=== PATIENT | female | born 1930 | race Caucasian/White ===

== ENCOUNTER 2016-05-16 13:54 | Emergency (ER) | payer MEDICARE ==
[~2016-05-16] VITALS: Ht 139.7 cm; Wt 64.3 kg
[~2016-05-16 13:54] MED LIST: ALAW0.02 EACH EYE; APIX2.5T PO; ATOR20TA PO; CEFU1TAB43 PO; CHOL1CAP6 PO; CLON.1 PO; DOCU1CAP39 PO; FENT100D TD; FERR324T4 PO; FEXO180 PO; FURO20TA PO; KLOR20TA6 PO; LEVO100T4 PO; LOSA100T PO; MAGN400 PO; MAXA10TA2 PO; METHO500 PO; METO25 PO; MOME17I; MOME17I EACH NARE; OCUVTAB PO; OXYC1SOL5 PO; POLY119S PO; PROT40TA PO; TRAZ50TA4 PO
[2016-05-16 14:14] VITALS: BP 103/46; PULSE 76; RESP 18; TEMP 99.3; O2SAT 98
[2016-05-16] MEDS ORDERED: TRAZ50TA12 PO (14:45)
[2016-05-16] MEDS ORDERED: POTA10TA2 PO (14:45)
[2016-05-16] MEDS ORDERED: AMLO10TA2 PO (14:46)
[2016-05-16] MEDS ORDERED: MIRA25TA PO (14:46)
[2016-05-16] MEDS ORDERED: HYDR-3533 PO (14:46)
[2016-05-16] MEDS ORDERED: FURO1TAB62 PO (14:46)
[2016-05-16] MEDS ORDERED: FENT50DI T-DERMAL (14:46)
[2016-05-16] MEDS ORDERED: LIPI20TA PO (14:46)
[2016-05-16] MEDS ORDERED: APIX2.5T PO (14:46)
[2016-05-16] MEDS ORDERED: FLUT50SP EACH NARE (14:46)
[2016-05-16] MEDS ORDERED: ALAW0.02 EACH EYE (14:46)
[2016-05-16] MEDS ORDERED: LEVO125T4 PO (14:46)
[2016-05-16] MEDS ORDERED: LOSA100T PO (14:46)
[2016-05-16] MEDS ORDERED: FEXO180T PO (14:46)
[2016-05-16] MEDS ORDERED: IMIT100T PO (14:46)
[2016-05-16] MEDS ORDERED: GABA300C5 PO (14:46)
--- NOTE | 2016-05-16 14:53 | PD ---
HPI Chief Complaint: Edema Time Seen by Provider: 14:19 Travel History International Travel<30 days: No Contact w/Intl Traveler<30days: No Traveled to known affect area: No History of Present Illness HPI The patient is a 86-year-old female who presents to the emergency department for lower extremity edema. According to the the patient has a history of lower extremity edema and the patient notes an approximately 2 month history of intermittent edema of the lower extremities. The patient states the edema is worse throughout the day and at night, slightly improved in the morning. She states both lower extremities are occasionally edematous, occasionally warm, occasionally red. The patient does have a history of cellulitis to lower extremities as well as pain to stay from left lower extremity from previous CABG. The patient called her primary physician, Dr. Terry, who referred the patient to the emergency department. The also states the patient occasionally has intermittent episodes of confusion, their physician recommended a CT the brain as well as the patient is currently anticoagulated on Eliquis. The patient denies any current focal deficits, weakness, numbness, or tingling. She denies any difficulty with her speech or headache. The patient denies any current chest pain or shortness of breath. PFSH Past Medical History Hx Anticoagulant Therapy: Yes Anemia: Yes Arthritis: Yes Atrial Fibrillation: Yes Autoimmune Disease: Yes (RA) Anxiety: No Depression: Yes (HX OF - DENIES CURRENTLY ) Cancer: No Cardiac Catheterization: Yes Cardiovascular Problems: Yes High Cholesterol: Yes Coronary Artery Disease: Yes Diabetes: No Diminished Hearing: No Endocrine: Yes Gastrointestinal Disorders: Yes GERD: Yes Genitourinary: No Hypertension: Yes Immune Disorder: Yes (RA) Implanted Vascular Access Dvce: Yes Musculoskeletal: Yes Neurologic: Yes Psychiatric: Yes Reproductive: No Respiratory: No Immunizations Current: Yes Myocardial Infarction: Yes Thyroid Disease: Yes (HYPO) Triglycerides - High: Yes Tetanus Vaccination: > 5 Years ?: Not Menopausal: Yes Past Surgical History Body Medical Devices: PHONG EYE LENS, UNSURE IF STENTS FROM CATH Cardiac Surgery: Yes (X2 VESSEL CABG) Coronary Artery Bypass Graft: Yes (double bypass 1994) Eye Surgery: Yes (BILATERAL CATARACT) Gynecologic Surgery: Yes (ABDOMINOPLASTY ) Hysterectomy: Yes Joint Replacement: Yes (PHONG. HIP 1996, 2010) Neurologic Surgery: Yes (LUMBAR LAMINECTOMY ; ANTERIOR CERVCIAL FUSION ) Other Surgery: Yes (TUMMY TUCK) Social History Alcohol Use: Yes (OCCAS WINE) Tobacco Use: No Substance Use: No Allergies-Medications (Allergen,Severity, Reaction): Coded Allergies: Amoxicillin (Verified Allergy, Severe, Anaphylaxis, 05/16/16) Sulfa (Verified Allergy, Severe, SEVERE RASH, 05/16/16) SEVERE RASH Amalgams ([place]) (Verified Allergy, Unknown, pain, 05/16/16) Celebrex (Unverified Allergy, Unknown, can not remember, 05/16/16) Hydrocodone (Verified Allergy, Unknown, Pt states that she is no longer allergic to hydrocodone,, 05/16/16) Pt states that she is no longer allergic to hydrocodone, usually takes this medication for pain Penicillin (Verified Allergy, Unknown, Anaphylaxis, 05/16/16) ALL CILLINS Adhesives (Verified Adverse Reaction, Mild, ITCHING- ONLY IF STAYS TOO LONG, 05/16/16) Reported Meds & Prescriptions Reported Meds & Active Scripts Active Macrobid (Nitrofurantoin Monoh/Nitrofur Macro) 100 Mg Cap 100 Mg PO BID Reported Lortab (Hydrocodone-Acetaminophen) 5-325 Mg Tab 1 Tab PO Q6H PRN Fexofenadine (Fexofenadine HCl) 180 Mg Tab 180 Mg PO DAILY PRN Imitrex (Sumatriptan Succinate) 100 Mg Tab 100 Mg PO ONCE PRN If a satisfactory response has not been obtained at 2 hours, a second dose may be administered Gabapentin 300 Mg Cap 300 Mg PO BID Fentanyl Patch 72 HR (Fentanyl) 50 Mcg/Hr Patch 50 Mcg T-DERMAL Q72H Remove old patch when new one placed. Myrbetriq (Mirabegron) 25 Mg Tab 25 Mg PO DAILY [place] Opth Drops (Ketotifen Opth Drops) 0.025% Drops 1 Drop EACH EYE BID Lasix (Furosemide) 20 Mg Tab 20 Mg PO 3 TIMES WEEK Fluticasone Nasal [place] 50 Mcg/Act Naspr 50 Mcg EACH NARE BID 50 mcg/spray Amlodipine (Amlodipine Besylate) 10 Mg Tab 10 Mg PO DAILY Losartan (Losartan Potassium) 100 Mg Tab 100 Mg PO DAILY Lipitor (Atorvastatin Calcium) 20 Mg Tab 20 Mg PO HS Eliquis (Apixaban) 2.5 Mg Tab 2.5 Mg PO BID Levothyroxine (Levothyroxine Sodium) 125 Mcg Tab 125 Mcg PO DAILY Trazodone (Trazodone HCl) 50 Mg Tab 50 Mg PO HS Potassium Chloride ER (Potassium Chloride) 10 Meq Tab 10 Meq PO 3 TIMES WEEK Review of Systems Except as stated in HPI: all other systems reviewed are Neg General / Constitutional: No: Fever HENT: No: Lightheadedness Cardiovascular: No: Chest Pain or Discomfort Respiratory: No: Shortness of Breath Gastrointestinal: No: Nausea, Vomiting, Abdominal Pain Musculoskeletal: Positive: Edema Neurologic: Positive: Change in Mentation, No: Focal Abnormalities ( occasional change in mental status according to the ), Headache, Paresthesia, Sensory Disturbance Physical Exam Narrative GENERAL: Awake, alert, 86-year-old female who appears her stated age and is in no acute respiratory distress. SKIN: Warm and dry. HEAD: Atraumatic. Normocephalic. EYES: No injection or drainage. ENT: No nasal bleeding or discharge. Mucous membranes pink and moist. NECK: Trachea midline. No JVD. CARDIOVASCULAR: Regular rate and rhythm. No murmur appreciated. Well-healed midline sternal scar. RESPIRATORY: No accessory muscle use. Clear to auscultation. Breath sounds equal bilaterally. GASTROINTESTINAL: Abdomen soft, non-tender, nondistended. No rebound tenderness. MUSCULOSKELETAL: No obvious deformities. Lower extremity pitting edema from the knees inferiorly. Well-healed surgical scar medial aspect the left lower extremity. Positive distal pulses. No obvious erythema or calor. NEUROLOGICAL: Awake and alert. No obvious cranial nerve deficits. Motor grossly within normal limits. Normal speech. Patient is oriented to person, place, and year. Follows commands without difficulty. Nonfocal on exam. PSYCHIATRIC: Appropriate mood and affect; insight and judgment normal. Data Data Last Documented VS Vital Signs Date Time Temp Pulse Resp B/P Pulse Ox O2 Delivery O2 Flow Rate FiO2 05/16/16 16:30 76 16 139/64 96 Room Air 05/16/16 14:[address] Brain W/O Iv Contrast(Rout) (05/16/16 ) Complete Blood Count With Diff (05/16/16 14:27) Comprehensive Metabolic Panel (05/16/16 14:27) Urinalysis - C+S If Indicated (05/16/16 14:27) Chest, Single Ap (05/16/16 ) Urine Culture (05/16/16 15:30) Labs Laboratory Tests Test 05/16/16 05/16/16 14:55 15:30 White Blood Count 9.9 TH/MM3 Red Blood Count 4.80 MIL/MM3 Hemoglobin 14.1 GM/DL Hematocrit 41.9 % Mean Corpuscular Volume 87.3 FL Mean Corpuscular Hemoglobin 29.4 PG Mean Corpuscular Hemoglobin 33.6 % Concent Red Cell Distribution Width 13.7 % Platelet Count 269 TH/MM3 Mean Platelet Volume 7.5 FL Neutrophils (%) (Auto) 63.4 % Lymphocytes (%) (Auto) 19.3 % Monocytes (%) (Auto) 9.2 % Eosinophils (%) (Auto) 3.3 % Basophils (%) (Auto) 4.8 % Neutrophils # (Auto) 6.3 TH/MM3 Lymphocytes # (Auto) 1.9 TH/MM3 Monocytes # (Auto) 0.9 TH/MM3 Eosinophils # (Auto) 0.3 TH/MM3 Basophils # (Auto) 0.5 TH/MM3 CBC Comment DIFF FINAL Differential Comment Sodium Level 139 MEQ/L Potassium Level 4.2 MEQ/L Chloride Level 101 MEQ/L Carbon Dioxide Level 29.1 MEQ/L Anion Gap 9 MEQ/L Blood Urea Nitrogen 28 MG/DL Creatinine 1.50 MG/DL Estimat Glomerular Filtration 33 ML/MIN Rate Random Glucose 113 MG/DL Calcium Level 10.3 MG/DL Total Bilirubin 0.6 MG/DL Aspartate Amino Transf 33 U/L (AST/SGOT) Alanine Aminotransferase 24 U/L (ALT/SGPT) Alkaline Phosphatase 80 U/L Total Protein 7.9 GM/DL Albumin 4.2 GM/DL Urine Collection Type cc Urine Color YELLOW Urine Turbidity CLEAR Urine pH 6.0 Urine Specific [place] 1.016 Urine Protein NEG mg/dL Urine Glucose (UA) NEG mg/dL Urine Ketones NEG mg/dL Urine Occult Blood SMALL Urine Nitrite NEG Urine Bilirubin NEG Urine Leukocyte Esterase LARGE Urine WBC 9-14 /hpf Urine WBC Clumps FEW Urine Squamous Epithelial 0-2 /hpf Cells Urine Bacteria RARE /hpf Microscopic Urinalysis Comment CULTURE INDICATED MDM Medical Decision Making Medical Screen Exam Complete: Yes Emergency Medical Condition: Yes Medical Record Reviewed: Yes Interpretation(s) Last Impressions Head CT 05/16/16 0000 Signed Impressions: Service Date/Time: Monday, May 16, 2016 15:35 - CONCLUSION: Normal examination for a patient of this age. No significant change has occurred. Marvin Butts MD Chest X-Ray 05/16/16 0000 Signed Impressions: Service Date/Time: Monday, May 16, 2016 14:59 - CONCLUSION: Stable chest as described Marvin Butts MD Laboratory Tests Test 05/16/16 05/16/16 14:55 15:30 White Blood Count 9.9 TH/MM3 Red Blood Count 4.80 MIL/MM3 Hemoglobin 14.1 GM/DL Hematocrit 41.9 % Mean Corpuscular Volume 87.3 FL Mean Corpuscular Hemoglobin 29.4 PG Mean Corpuscular Hemoglobin 33.6 % Concent Red Cell Distribution Width 13.7 % Platelet Count 269 TH/MM3 Mean Platelet Volume 7.5 FL Neutrophils (%) (Auto) 63.4 % Lymphocytes (%) (Auto) 19.3 % Monocytes (%) (Auto) 9.2 % Eosinophils (%) (Auto) 3.3 % Basophils (%) (Auto) 4.8 % Neutrophils # (Auto) 6.3 TH/MM3 Lymphocytes # (Auto) 1.9 TH/MM3 Monocytes # (Auto) 0.9 TH/MM3 Eosinophils # (Auto) 0.3 TH/MM3 Basophils # (Auto) 0.5 TH/MM3 CBC Comment DIFF FINAL Differential Comment Sodium Level 139 MEQ/L Potassium Level 4.2 MEQ/L Chloride Level 101 MEQ/L Carbon Dioxide Level 29.1 MEQ/L Anion Gap 9 MEQ/L Blood Urea Nitrogen 28 MG/DL Creatinine 1.50 MG/DL Estimat Glomerular Filtration 33 ML/MIN Rate Random Glucose 113 MG/DL Calcium Level 10.3 MG/DL Total Bilirubin 0.6 MG/DL Aspartate Amino Transf 33 U/L (AST/SGOT) Alanine Aminotransferase 24 U/L (ALT/SGPT) Alkaline Phosphatase 80 U/L Total Protein 7.9 GM/DL Albumin 4.2 GM/DL Urine Collection Type cc Urine Color YELLOW Urine Turbidity CLEAR Urine pH 6.0 Urine Specific [place] 1.016 Urine Protein NEG mg/dL Urine Glucose (UA) NEG mg/dL Urine Ketones NEG mg/dL Urine Occult Blood SMALL Urine Nitrite NEG Urine Bilirubin NEG Urine Leukocyte Esterase LARGE Urine WBC 9-14 /hpf Urine WBC Clumps FEW Urine Squamous Epithelial 0-2 /hpf Cells Urine Bacteria RARE /hpf Microscopic Urinalysis Comment CULTURE INDICATED Differential Diagnosis Differential diagnosis includes delirium, UTI, hyponatremia, subdural hemorrhage , early dementia, dependent edema, DVT, congestive heart failure. Narrative Course IV was established, labs are drawn and sent, and the patient was placed on cardiac telemetry monitoring and continuous pulse oximetry monitoring. CT of the brain was ordered to rule out subdural hemorrhage. Chest x-ray was obtained to rule out significant pulmonary edema. Examination of the lower extremities reveals I lateral lower extremity pitting edema, most likely dependent edema, no evidence of cellulitis. UA will be sent to lab to rule out UTI causing delirium. CMP was sent to lab to rule out hyponatremia. The patient's sodium is within normal limits, albumin is normal at 4.2. Creatinine is mildly elevated 1.5, EMR reveals baseline is usually 0.79, calcium is mildly high at 10.3, mild dehydration and renal insufficiency. Chest x-ray reveals poor inspiration. Patient was signed out to Dr. Ochoa at [address] PM with results of CT of the brain and UA results pending. Diagnosis Primary Impression: Dependent edema Additional Impressions: Acute renal insufficiency Pyuria Patient Instructions: General Instructions Med/Other Pt SpecificInfo: Prescription(s) given Scripts Nitrofurantoin Monohydrate Macrocrystals (Macrobid)100 Mg [id number] Mg PO BID #10 CAP Ref 0 Prov:Jackson Blevins MD 05/16/16 Disposition: 01 DISCHARGE HOME Condition: Stable Ramiro Lundberg MD May 16, 2016 14:53
[2016-05-16 14:59] LABS: AUTOMATED NEUTROPHIL # 6.3 TH/MM3 (1.8-7.7); BASOPHIL # 0.5 TH/MM3 (0-0.2); BASOPHIL % 4.8 % (0.0-2.0); EOSINOPHIL # 0.3 TH/MM3 (0-0.4); EOSINOPHIL % 3.3 % (0.0-4.0); HEMATOCRIT 41.9 % (35.0-46.0); HEMO FLAGS DIFF FINAL; LYMPH % 19.3 % (9.0-44.0); LYMPHOCYTE # 1.9 TH/MM3 (1.0-4.8); MEAN CELL VOLUME 87.3 FL (80.0-100.0); MEAN CORPUSCULAR HEMOGLOBIN 29.4 PG (27.0-34.0); MEAN CORPUSCULAR HGB CONC 33.6 % (32.0-36.0); MONO % 9.2 % (0.0-8.0); NEUT % 63.4 % (16.0-70.0); PLATELET COUNT 269 TH/MM3 (150-450); RED CELL DISTRIBUTION WIDTH 13.7 % (11.6-17.2); WHITE BLOOD COUNT 9.9 TH/MM3 (4.0-11.0)
[2016-05-16 15:08] LABS: CHLORIDE 101 MEQ/L (98-107); POTASSIUM 4.2 MEQ/L (3.5-5.1); SODIUM (NA) 139 MEQ/L (136-145)
[2016-05-16 15:12] LABS: ANION GAP 9 MEQ/L (5-15); BICARBONATE 29.1 MEQ/L (21.0-32.0); BLOOD UREA NITROGEN 28 MG/DL (7-18)
[2016-05-16 15:15] LABS: ALT (GPT) 24 U/L (10-53); AST (GOT) 33 U/L (15-37); GLOMERULAR FILTRATION RATE 33 ML/MIN (>89)
[2016-05-16 15:17] LABS: TOTAL BILIRUBIN ADULT 0.6 MG/DL (0.2-1.0)
[2016-05-16 15:18] LABS: ALKALINE PHOSPHATASE 80 U/L (45-117)
[2016-05-16 15:20] VITALS: BP 132/76; PULSE 76; RESP 16; O2SAT 98
[2016-05-16 15:38] LABS: BLOOD, URINE SMALL (NEG); GLUCOSE,URINE NEG (NEG); KETONE, URINE NEG (NEG); NITRITE,URINE NEG (NEG)
--- NOTE | 2016-05-16 15:54 | RADHPO ---
EXAM DATE/TIME: 05/16/2016 15:35 [facility] COMPARISON: CT BRAIN W/O CONTRAST, July 29, 2015, 13:28. INDICATIONS : Altered mental status. RADIATION DOSE: 63.94 CTDIvol (mGy) MEDICAL HISTORY : Cardiovascular disease. Hypertension. SURGICAL HISTORY : None. ENCOUNTER: Initial ACUITY: 1 day PAIN SCALE: 0/10 LOCATION: cranial TECHNIQUE: Multiple contiguous axial images were obtained of the head. Using automated exposure control and adj ustment of the mA and/or kV according to patient size, radiation dose was kept as low as reasonably a chievable to obtain optimal diagnostic quality images. FINDINGS: CEREBRUM: The ventricles are normal for age. No evidence of midline shift, mass lesion, hemorrhage or acute in farction. No extra-axial fluid collections are seen. POSTERIOR FOSSA: The cerebellum and brainstem are intact. The 4th ventricle is midline. The cerebellopontine angle i s unremarkable. EXTRACRANIAL: The visualized portion of the orbits is intact. SKULL: The calvaria is intact. No evidence of skull fracture. CONCLUSION: Normal examination for a patient of this age. No significant change has occurred. Marvin Butts MD on May 16, 2016 at 15:52 Board Certified Radiologist. This report was verified electronically.
--- NOTE | 2016-05-16 15:58 | RADHPO ---
EXAM DATE/TIME: 05/16/2016 14:59 [facility] COMPARISON: CHEST SINGLE AP, July 29, 2015, 13:26. INDICATIONS : Cough and bilateral leg edema MEDICAL HISTORY : None. SURGICAL HISTORY : CABG. ENCOUNTER: Initial ACUITY: 2 days PAIN SCORE: 4/10 LOCATION: Bilateral chest FINDINGS: Again noted is evidence of prior median sternotomy cardiac surgery with compensated left ventricular cardiomegaly and atherosclerotic calcifications in aortic knob. There is persistent elevation the rig ht hemidiaphragm. CONCLUSION: Stable chest as described Marvin Butts MD on May 16, 2016 at 15:56 Board Certified Radiologist. This report was verified electronically.
[2016-05-16 16:23] LABS: URINE COLOR YELLOW (YELLW/STRAW)
[2016-05-16 16:24] LABS: BACTERIA, URINE RARE /hpf; COMMENT (UR) CULTURE INDICATED; CULTURE IF INDICATED CULTURE INDICATED; SQUAMOUS EPITHELIAL CELL URINE 0-2 /hpf (0-5)
[2016-05-16] MEDS ORDERED: MACR100C2 PO (16:27)
[2016-05-16 16:30] VITALS: BP 139/64; PULSE 76; RESP 16; O2SAT 96
--- NOTE | 2016-05-16 16:32 | PD ---
Data Data Last Documented VS Vital Signs Date Time Temp Pulse Resp B/P Pulse Ox O2 Delivery O2 Flow Rate FiO2 05/16/16 15:20 76 16 132/76 98 Room Air 05/16/16 14:[address] Brain W/O Iv Contrast(Rout) (05/16/16 ) Complete Blood Count With Diff (05/16/16 14:27) Comprehensive Metabolic Panel (05/16/16 14:27) Urinalysis - C+S If Indicated (05/16/16 14:27) Chest, Single Ap (05/16/16 ) Urine Culture (05/16/16 15:30) Labs Laboratory Tests Test 05/16/16 05/16/16 14:55 15:30 White Blood Count 9.9 TH/MM3 Red Blood Count 4.80 MIL/MM3 Hemoglobin 14.1 GM/DL Hematocrit 41.9 % Mean Corpuscular Volume 87.3 FL Mean Corpuscular Hemoglobin 29.4 PG Mean Corpuscular Hemoglobin 33.6 % Concent Red Cell Distribution Width 13.7 % Platelet Count 269 TH/MM3 Mean Platelet Volume 7.5 FL Neutrophils (%) (Auto) 63.4 % Lymphocytes (%) (Auto) 19.3 % Monocytes (%) (Auto) 9.2 % Eosinophils (%) (Auto) 3.3 % Basophils (%) (Auto) 4.8 % Neutrophils # (Auto) 6.3 TH/MM3 Lymphocytes # (Auto) 1.9 TH/MM3 Monocytes # (Auto) 0.9 TH/MM3 Eosinophils # (Auto) 0.3 TH/MM3 Basophils # (Auto) 0.5 TH/MM3 CBC Comment DIFF FINAL Differential Comment Sodium Level 139 MEQ/L Potassium Level 4.2 MEQ/L Chloride Level 101 MEQ/L Carbon Dioxide Level 29.1 MEQ/L Anion Gap 9 MEQ/L Blood Urea Nitrogen 28 MG/DL Creatinine 1.50 MG/DL Estimat Glomerular Filtration 33 ML/MIN Rate Random Glucose 113 MG/DL Calcium Level 10.3 MG/DL Total Bilirubin 0.6 MG/DL Aspartate Amino Transf 33 U/L (AST/SGOT) Alanine Aminotransferase 24 U/L (ALT/SGPT) Alkaline Phosphatase 80 U/L Total Protein 7.9 GM/DL Albumin 4.2 GM/DL Urine Collection Type cc Urine Color YELLOW Urine Turbidity CLEAR Urine pH 6.0 Urine Specific [place] 1.016 Urine Protein NEG mg/dL Urine Glucose (UA) NEG mg/dL Urine Ketones NEG mg/dL Urine Occult Blood SMALL Urine Nitrite NEG Urine Bilirubin NEG Urine Leukocyte Esterase LARGE Urine WBC 9-14 /hpf Urine WBC Clumps FEW Urine Squamous Epithelial 0-2 /hpf Cells Urine Bacteria RARE /hpf Microscopic Urinalysis Comment CULTURE INDICATED MDM Supervised Visit with ELIANA: No Narrative Course Case checked out to me at [address] Lundberg. I reviewed the entirety of the workup. I discussed with patient and at bedside. Urinalysis shows inflammatory cells and rare bacteria with leukocyte esterase. I did write 5 days of Macrobid. It will be cultured. Brain CT negative. Other results reviewed with the patient. They will follow-up with their primary physician Dr. Trery. Kerri for outpatient follow-up. Her questions were answered. Diagnosis Primary Impression: Dependent edema Additional Impressions: Acute renal insufficiency Pyuria Additional Instruction: The patient was advised to follow up with their physician and return if they worsen. Med/Other Pt SpecificInfo: Prescription(s) given Scripts Nitrofurantoin Monohydrate Macrocrystals (Macrobid)100 Mg [id number] Mg PO BID #10 CAP Ref 0 Prov:Jackson Blevins MD 05/16/16 Disposition: 01 DISCHARGE HOME Condition: Stable Jackson Blevins MD May 16, 2016 16:32
== END 2016-05-16 17:01 | disposition home or self-care (01) ==
LOC: PHED 13:54
DX: I12.9 Hypertensive chronic kidney disease with stage 1 through stage 4 chronic kidney disease, or unspecified chronic kidney disease (principal); N18.9 Chronic kidney disease, unspecified; R60.9 Edema, unspecified; Z95.1 Presence of aortocoronary bypass graft; I48.91 Unspecified atrial fibrillation; D64.9 Anemia, unspecified; M19.90 Unspecified osteoarthritis, unspecified site; Z79.01 Long term (current) use of anticoagulants; R82.99 Other abnormal findings in urine
CPT/HCPCS: 70450; 71010; 80053; 81001; 85025; 87086